=== PATIENT | male | born 1985 | race Caucasian/White ===

== ENCOUNTER 2022-11-06 20:19 | Emergency (ER) | payer MEDICAID ==
[2022-11-06] MEDS ORDERED: Sodium Chloride 0.9% 10 ML Syringe FLUSH PRN (20:31)
[2022-11-06 20:37] VITALS: BP 148/129; PULSE 72
[2022-11-06] MEDS ORDERED: Ketorolac 30 MG/ML SDV IVPUSH ONE (20:44)
[2022-11-06] MEDS ORDERED: Ondansetron 4 MG/2 ML SDV IVPUSH ONE (20:44)
[2022-11-06 21:13] LABS: ESTIMATED GFR 89 mL/min (>60)
== END 2022-11-06 22:00 | disposition home or self-care (01) ==
LOC: JD.ED 20:19
DX: R07.89 Other chest pain (principal); K59.09 Other constipation; I10 Essential (primary) hypertension; Z79.899 Other long term (current) drug therapy
CPT/HCPCS: 36415; 71045; 74018; 80053; 83735; 83880; 84484; 85025; 85379; 85610; 85730; 93005; 96374; 96375; 99285; J1885; J2405; J3490

== ENCOUNTER 2024-04-12 20:23 | Emergency (ER) | payer SELFPAY ==
[2024-04-12 20:42] VITALS: BP 122/100; PULSE 112
== END 2024-04-12 21:20 | disposition left against medical advice (07) ==
LOC: JD.ED 20:23
DX: F32.A Depression, unspecified (principal); I10 Essential (primary) hypertension; F17.210 Nicotine dependence, cigarettes, uncomplicated; Z79.899 Other long term (current) drug therapy
CPT/HCPCS: 99284